=== PATIENT | male | born 1985 | race African-American/Black ===

== ENCOUNTER 2016-06-02 19:59 | Emergency (ER) | payer OTHER ==
[~2016-06-02 19:59] MED LIST: LEXAPRO 10MG TA10 MG PO; TRAZODONE 50MG50 MG PO
[2016-06-02 22:17] LABS: BILIRUBIN NEGATIVE (NEGATIVE); BLOOD NEGATIVE Ery/uL (NEGATIVE); CLARITY HAZY (CLEAR); COLOR YELLOW (YELLOW); GLUCOSE (U) NORMAL (NORMAL); KETONE (U) NEGATIVE (NEGATIVE); LEUKOCYTES TRACE Leu/uL (NEGATIVE); NITRITE NEGATIVE (NEGATIVE); PROTEIN NEGATIVE (NEGATIVE); SPECIFIC GRAVITY 1.025 (1.001-1.030); UROBILINOGEN 0.2 mg/dL (0.2-1.0)
[2016-06-02 22:58] LABS: URINARY WBC TNTC
[2016-06-02 22:59] LABS: BACTERIA TRACE; SQUAMOUS EPITHELIAL CELLS RARE; URINARY RBC RARE
== END 2016-06-02 23:39 | disposition home or self-care (01) ==
LOC: FER 19:59
PROVIDERS: Nurse Practitioner
DX: A54.9 Gonococcal infection, unspecified (principal); F17.210 Nicotine dependence, cigarettes, uncomplicated
CPT/HCPCS: 81001; J0561

== ENCOUNTER 2021-02-16 13:16 | Emergency (ER) | payer OTHER ==
[~2021-02-16 13:16] MED LIST changes: +AMOXICILLIN500 MG PO; +FLOMAX0.4 MG PO; +MOTRIN600 MG PO; +ONDANSETRON ODT4 MG SL
== END 2021-02-16 16:12 | disposition home or self-care (01) ==
LOC: FER 13:16
DX: J02.9 Acute pharyngitis, unspecified (principal)
CPT/HCPCS: 87880; 99283

== ENCOUNTER 2021-05-22 14:01 | Emergency (ER) | payer OTHER ==
[2021-05-22] MEDS ORDERED: NAPROXEN500 MG PO (15:00)
== END 2021-05-22 15:47 | disposition home or self-care (01) ==
LOC: FER 14:01
DX: S29.011A Strain of muscle and tendon of front wall of thorax, initial encounter (principal); X50.9XXA Other and unspecified overexertion or strenuous movements or postures, initial encounter; Y93.89 Activity, other specified; Y92.89 Other specified places as the place of occurrence of the external cause; Y99.0 Civilian activity done for income or pay
CPT/HCPCS: 71046; 93005